=== PATIENT | female | born 1995 | race Caucasian/White ===

== ENCOUNTER 2018-09-17 11:45 | Observation (INO) ==
[2018-09-17 12:42] LABS: Basophils % 0.1 %; Eosinophils % 0.2 %; Hematocrit 38.6 % (35.3-44.9); Hemoglobin 12.8 g/dL (11.5-15.4); Immature Granulocytes % 0.3 % (0-4); Lymphocytes # 1.1 K/mcL (0.6-4.6); Mean Corpuscular HGB Conc 33.2 g/dL (31.6-35.5); Mean Corpuscular Hemoglobin 30.3 pg (28.0-33.3); Mean Corpuscular Volume 91.3 fL (83.0-100.0); Mean Platelet Volume 11.9 fL (9.4-12.4); Monocytes # 0.3 K/mcL (0.0-1.3); Monocytes % 3.4 %; Neutrophils # 7.8 K/mcL (1.6-8.9); Platelet Count 187 K/mcL (140-400); Red Blood Count 4.23 M/mcL (3.82-4.97); Red Cell Distribution Width 12.7 % (11.5-14.5); White Blood Count 9.3 K/mcL (4.3-11.1)
[2018-09-17 12:44] LABS: Bilirubin,Urine Negative (Negative); Blood,Urine Moderate (Negative); Clarity,Urine Cloudy (Clear); Color,Urine Yellow (Yellow); Glucose,Urine (UA) Normal (Normal); Ketones,Urine Negative (Negative); Leukocyte Esterase,Urine Small (Negative); Nitrite,Urine Negative (Negative); Protein,Urine Negative (Neg-Trace); Specific Gravity,Urine 1.026 (1.010-1.025)
[2018-09-17 12:47] LABS: Bacteria,Urine Many per hpf (None-Few); Hyaline Casts,Urine None Seen per lpf (None-Few); Squamous Epithelial Cell,Urine Many per lpf (None-Few)
[2018-09-17 13:01] LABS: BUN/Creatinine Ratio 12 (6-26); Blood Urea Nitrogen 6 mg/dL (6-20); Calcium 9.4 mg/dL (8.6-10.3); Carbon Dioxide 26 mEq/L (23-29); Chloride 103 mEq/L (98-107); Glucose 99 mg/dL (70-105); Osmolality,Calculated 286 (280-300); Potassium 3.5 mEq/L (3.5-5.1); Sodium 139 mEq/L (136-145); eGFR For African Americans > 60 (> 60); eGFR For Non-African Americans > 60 (> 60)
--- NOTE | 2018-09-17 14:13 | Emergency Department Note ---
Disposition Clinical Impression: 12 weeks gestation of , Pyelonephritis Disposition: Admitted As Inpatient Condition: Fair Referrals: Latha Cantor, HEADER MACHINE OPERATOR [Primary Care Provider] - Forms: ED Satisfaction Letter Time of Disposition: 17:16 Female Urogenital HPI - General Chief complaint: ED Urogenital-Female Stated complaint: right flank pain, UTI Time Seen by Provider: 09/17/18 14:12 Source: patient Mode of arrival: ambulatory Limitations: no limitations Nursing Notes Reviewed: Yes Vital Signs Reviewed: Yes - History of Present Illness HPI Narrative: Patient is a 23-year-old female presenting with dysuria. Patient is a , currently 12 weeks , follows with Dr. Caro at [facility]. Patient states that approximately one week ago she began to have dysuria with right flank pain, at that point in time she was diagnosed with a urinary tract infection and placed on nitrofurantoin, she took this course, following initiation of this dosing, she was seen by her BANQUET PILOT with positive movement on ultrasound. She states that her symptoms have continued but over the weekend she started have fever and chills with increased flank pain on the right. She complains of dysuria and urgency, frequency as well as fevers and chills. She also has nausea without vomiting. She denies any abdominal pain, no vaginal bleeding or vaginal discharge. - Related Data Previous Rx's Medication Instructions Recorded Pnv95/Ferrous Fumarate/FA 1 each PO DAILY #90 tablet 07/29/18 [ Vitamin Tablet] Allergies Allergy/AdvReac Type Severity Reaction Status Date / Time acetaminophen [From Percocet] Allergy Hallucinati Verified 09/17/18 12:04 ng hydrocodone [From [place]] Allergy Hallucinati Verified 09/17/18 12:04 ng oxycodone [From Percocet] Allergy Hallucinati Verified 09/17/18 12:04 ng All systems ED: reviewed and negative except as stated. Review of Systems: As Per HPI Constitutional: Reports: fever, chills ENT ED: Denies: congestion Cardiovascular: Denies: chest pain, palpitations, syncope Respiratory: Denies: cough, dyspnea Gastrointestinal: Reports: nausea. Denies: abdominal pain, vomiting, diarrhea, hematemesis, melena, hematochezia Genitourinary: Reports: urgency, dysuria. Denies: hematuria, discharge Musculoskeletal: Reports: back pain Integumentary: Denies: rash Neurological: Denies: headache, weakness, confusion Endocrine: Denies: fatigue Past Medical History - Past Medical History Medical history: Reports: no medical history Surgical history: Reports: no surgical history Psychiatric history: Reports: no psych history BANQUET PILOT history: Reports: no BANQUET PILOT history - Social History Smoking Status: Current every day smoker Smokeless Tobacco Status: No Alcohol use: Reports: none Drug use: Reports: none Physical Exam General: Conversant. No apparent distress. Follow commands. Appears stated age. Neck: No JVD. Trachea midline. Neck supple. Eyes: PERRL. No scleral icterus. HENT: Normocephalic and atraumatic. Moist mucus membranes. Cardiovascular: Regular rate and rhythm. Normal S1 and S2. No murmurs appreciated. Normal capillary refill. Extremities well perfused with 2+ distal pulses bilaterally. No edema. Pulmonary: Normal and equal breath sounds bilaterally, anteriorly and posteriorly. No wheezes, rales, or rhonchi. Not in respiratory distress. Speaks in full sentences. Abdomen: Patient without abdominal tenderness, she has a gravid abdomen above the suprapubic region, CVA tenderness on the right down to the lateral right abdomen, without left CVA tenderness. No rash Neuro: Alert and oriented x3. No slurred speech. No focal deficits noted. Skin: No rashes noted on visualized skin. Musculoskeletal: No bony abnormalities visualized. Moves all extremities. Psych: Normal mood. Pleasant. Makes appropriate eye contact. Course Vital Signs Temperature 98.2 F 09/17/18 11:56 Pulse Rate 115 09/17/18 11:56 Respiratory Rate 09/17/18 11:56 Blood Pressure 137/81 09/17/18 11:56 O2 Sat by Pulse Oximetry 98 09/17/18 11:56 Temperature 98.2 F 09/17/18 13:57 Pulse Rate 115 09/17/18 13:57 Respiratory Rate 09/17/18 13:57 Blood Pressure 137/81 09/17/18 13:57 O2 Sat by Pulse Oximetry 98 09/17/18 13:57 Oxygen Delivery Oxygen Delivery Room Air Urogenital-Female - MDM Narrative Medical decision making narrative: Patient is a 23-year-old female who is currently 12 weeks presenting for continued urinary tract infection despite nitrofurantoin treatment. On arrival, patient is tachycardic, she is afebrile and normotensive. Patient reports fever over the weekend with a temperature of 102 Fahrenheit. She states she has continued to have subjective fevers and chills throughout the past day. Patient was sent in by her BANQUET PILOT, Dr. Caro for further evaluation. Given concern for pyelonephritis versus obstruction and infected nephrolithiasis, CBC, BMP as well as urinalysis will be performed. Bedside ultrasound was performed with excellent movement, heart tones of 150 bpm. CBC, BMP are unremarkable. Urinalysis continues to show urinary tract infection. Patient was started on 2 L of saline given the tachycardia, she was also started on Rocephin. Given the right flank pain, renal ultrasound was performed to rule out hydronephrosis for concern for obstruction and infected stone, renal ultrasound shows no hydronephrosis and otherwise is unremarkable. I did speak with the on-call [employer] franchise field consultant, who agrees with Rocephin treatment, states that they will see the patient as consult as the patient is currently less than 20 weeks. Patient at this point is stable, following fluid hydration, patient's heart rate is 98 in the room. Patient agrees with admission and disposition at this point in time. Patient has been admitted. - Medical Records Medical records reviewed: Yes I reviewed the patient's medical records. - Lab Data Lab results reviewed: Yes I reviewed the patient's lab results. Result diagrams: 09/17/18 12:14 09/17/18 12:14 Lab Results 09/17/18 09/17/18 09/17/18 Range/Units 11:57 12:12 12:14 WBC 9.3 (4.3-11.1) K/mcL RBC 4.23 (3.82-4.97) M/mcL Hgb 12.8 (11.5-15.4) g/dL Hct 38.6 (35.3-44.9) % MCV 91.3 (83.0-100.0) fL MCH 30.3 (28.0-33.3) pg MCHC 33.2 (31.6-35.5) g/dL RDW 12.7 (11.5-14.5) % Plt Count 187 (140-400) K/mcL MPV 11.9 (9.4-12.4) fL Immature Gran % 0.3 (0-4) % Seg Neutrophils % 84.0 % Lymphocytes % 12.0 % Monocytes % 3.4 % Eosinophils % 0.2 % Basophils % 0.1 % Neutrophils # 7.8 (1.6-8.9) K/mcL Lymphocytes # 1.1 (0.6-4.6) K/mcL Monocytes # 0.3 (0.0-1.3) K/mcL Eosinophils # 0.0 (0.0-0.6) K/mcL Basophils # 0.0 (0.0-0.2) K/mcL Sodium (136-145) mEq/L Potassium (3.5-5.1) mEq/L Chloride (98-107) mEq/L Carbon Dioxide (23-29) mEq/L BUN (6-20) mg/dL Creatinine (0.60-1.20) mg/dL Est GFR ( Amer) (> 60) Est GFR (Non-Af Amer) (> 60) BUN/Creatinine Ratio (6-26) Glucose (70-105) mg/dL Calculated Osmolality (280-300) Lactic Acid (0.5-2.2) mmol/L Calcium (8.6-10.3) mg/dL Beta HCG, Quant (Less than 5) mIU/mL Urine Color Yellow (Yellow) Urine Clarity Cloudy A (Clear) Urine pH 7.0 (5.0-8.0) pH Units Ur Specific [place] 1.026 H (1.010-1.025) Urine Protein Negative (Neg-Trace) mg/dL Urine Glucose (UA) Normal (Normal) mg/dL Urine Ketones Negative (Negative) mg/dL Urine Blood Moderate H (Negative) Urine Nitrite Negative (Negative) Urine Bilirubin Negative (Negative) Urine Urobilinogen 2.0 H (Normal) mg/dL Ur Leukocyte Esterase Small H (Negative) Urine Microscopic RBC 5-15 H (0-3) per hpf Urine Microscopic WBC 3-5 H (0-3) per hpf Ur Squamous Epith Cells Many H (None-Few) per lpf Urine Bacteria Many H (None-Few) per hpf Hyaline Casts None Seen (None-Few) per lpf Ur Culture Indicated? YES A (NO) Urine Test Positive A (Negative) 09/17/18 09/17/18 09/17/18 Range/Units 12:14 14:42 14:42 WBC (4.3-11.1) K/mcL RBC (3.82-4.97) M/mcL Hgb (11.5-15.4) g/dL Hct (35.3-44.9) % MCV (83.0-100.0) fL MCH (28.0-33.3) pg MCHC (31.6-35.5) g/dL RDW (11.5-14.5) % Plt Count (140-400) K/mcL MPV (9.4-12.4) fL Immature Gran % (0-4) % Seg Neutrophils % % Lymphocytes % % Monocytes % % Eosinophils % % Basophils % % Neutrophils # (1.6-8.9) K/mcL Lymphocytes # (0.6-4.6) K/mcL Monocytes # (0.0-1.3) K/mcL Eosinophils # (0.0-0.6) K/mcL Basophils # (0.0-0.2) K/mcL Sodium 139 (136-145) mEq/L Potassium 3.5 (3.5-5.1) mEq/L Chloride 103 (98-107) mEq/L Carbon Dioxide 26 (23-29) mEq/L BUN 6 (6-20) mg/dL Creatinine 0.50 L (0.60-1.20) mg/dL Est GFR ( Amer) > 60 (> 60) Est GFR (Non-Af Amer) > 60 (> 60) BUN/Creatinine Ratio 12 (6-26) Glucose 99 (70-105) mg/dL Calculated Osmolality 286 (280-300) Lactic Acid 1.1 (0.5-2.2) mmol/L Calcium 9.4 (8.6-10.3) mg/dL Beta HCG, Quant 462084 H 159316 H (Less than 5) mIU/mL Urine Color (Yellow) Urine Clarity (Clear) Urine pH (5.0-8.0) pH Units Ur Specific [place] (1.010-1.025) Urine Protein (Neg-Trace) mg/dL Urine Glucose (UA) (Normal) mg/dL Urine Ketones (Negative) mg/dL Urine Blood (Negative) Urine Nitrite (Negative) Urine Bilirubin (Negative) Urine Urobilinogen (Normal) mg/dL Ur Leukocyte Esterase (Negative) Urine Microscopic RBC (0-3) per hpf Urine Microscopic WBC (0-3) per hpf Ur Squamous Epith Cells (None-Few) per lpf Urine Bacteria (None-Few) per hpf Hyaline Casts (None-Few) per lpf Ur Culture Indicated? (NO) Urine Test (Negative) - Radiology Data Radiology results reviewed: Yes I reviewed the patient's radiology results. Retroperitoneum Ultrasound 09/17/18 15:50 IMPRESSION: Unremarkable ultrasound of the kidneys and urinary bladder. D/ / Brenda Holguin MD / Brenda Holguin MD Interpreting Provider: Brenda Holguin MD
[2018-09-17] MEDS ORDERED: cefTRIAXone 1,000 MG in Water for inj. (sterile) 10 ML IVP ONE (14:22)
[2018-09-17] MEDS ORDERED: 0.9 % Sodium Chloride 1,000 ML IVC ONE ×2 (14:32→16:32)
--- NOTE | 2018-09-17 16:37 | Emergency Department Note ---
Disposition Clinical Impression: 12 weeks gestation of , Pyelonephritis Disposition: Still a Patient Condition: Good Referrals: Latha Cantor, HEMATOLOGY TECHNOLOGIST [Primary Care Provider] - Forms: ED Satisfaction Letter Time of Disposition: 16:37 General Adult HPI - General Chief complaint: ED Urogenital-Female Stated complaint: right flank pain, UTI Time Seen by Provider: 09/17/18 14:12 Source: patient Mode of arrival: ambulatory Limitations: no limitations - History of Present Illness Pain Scale: 3 - Related Data Previous Rx's Medication Instructions Recorded Pnv95/Ferrous Fumarate/FA 1 each PO DAILY #90 tablet 07/29/18 [ Vitamin Tablet] Allergies Allergy/AdvReac Type Severity Reaction Status Date / Time acetaminophen [From Percocet] Allergy Hallucinati Verified 09/17/18 12:04 ng hydrocodone [From [place]] Allergy Hallucinati Verified 09/17/18 12:04 ng oxycodone [From Percocet] Allergy Hallucinati Verified 09/17/18 12:04 ng Constitutional: Reports: fever, chills ENT ED: Denies: congestion Cardiovascular: Denies: chest pain, palpitations, syncope Respiratory: Denies: cough, dyspnea Gastrointestinal: Reports: nausea. Denies: abdominal pain, vomiting, diarrhea, hematemesis, melena, hematochezia Genitourinary: Reports: urgency, dysuria. Denies: hematuria, discharge Musculoskeletal: Reports: back pain Integumentary: Denies: rash Neurological: Denies: headache, weakness, confusion Endocrine: Denies: fatigue Past Medical History - Past Medical History Medical history: Reports: no medical history Surgical history: Reports: no surgical history Psychiatric history: Reports: no psych history DISCHARGING MACHINE OPERATOR history: Reports: no DISCHARGING MACHINE OPERATOR history - Social History Smoking Status: Current every day smoker Smokeless Tobacco Status: No Alcohol use: Reports: none Drug use: Reports: none Physical Exam - General Limitations: no limitations General appearance: alert, in no apparent distress Course Vital Signs Temperature 98.2 F 09/17/18 11:56 Pulse Rate 115 09/17/18 11:56 Respiratory Rate 20 09/17/18 11:56 Blood Pressure 137/81 09/17/18 11:56 O2 Sat by Pulse Oximetry 98 09/17/18 11:56 Temperature 98.2 F 09/17/18 13:57 Pulse Rate 115 09/17/18 13:57 Respiratory Rate 20 09/17/18 13:57 Blood Pressure 137/81 09/17/18 13:57 O2 Sat by Pulse Oximetry 98 09/17/18 13:57 Oxygen Delivery Oxygen Delivery Room Air Medical Decision Making - Lab Data Result diagrams: 09/17/18 12:14 09/17/18 12:14 Lab Results 09/17/18 09/17/18 09/17/18 Range/Units 11:57 12:12 12:14 WBC 9.3 (4.3-11.1) K/mcL RBC 4.23 (3.82-4.97) M/mcL Hgb 12.8 (11.5-15.4) g/dL Hct 38.6 (35.3-44.9) % MCV 91.3 (83.0-100.0) fL MCH 30.3 (28.0-33.3) pg MCHC 33.2 (31.6-35.5) g/dL RDW 12.7 (11.5-14.5) % Plt Count 187 (140-400) K/mcL MPV 11.9 (9.4-12.4) fL Immature Gran % 0.3 (0-4) % Seg Neutrophils % 84.0 % Lymphocytes % 12.0 % Monocytes % 3.4 % Eosinophils % 0.2 % Basophils % 0.1 % Neutrophils # 7.8 (1.6-8.9) K/mcL Lymphocytes # 1.1 (0.6-4.6) K/mcL Monocytes # 0.3 (0.0-1.3) K/mcL Eosinophils # 0.0 (0.0-0.6) K/mcL Basophils # 0.0 (0.0-0.2) K/mcL Sodium (136-145) mEq/L Potassium (3.5-5.1) mEq/L Chloride (98-107) mEq/L Carbon Dioxide (23-29) mEq/L BUN (6-20) mg/dL Creatinine (0.60-1.20) mg/dL Est GFR ( Amer) (> 60) Est GFR (Non-Af Amer) (> 60) BUN/Creatinine Ratio (6-26) Glucose (70-105) mg/dL Calculated Osmolality (280-300) Lactic Acid (0.5-2.2) mmol/L Calcium (8.6-10.3) mg/dL Beta HCG, Quant (Less than 5) mIU/mL Urine Color Yellow (Yellow) Urine Clarity Cloudy A (Clear) Urine pH 7.0 (5.0-8.0) pH Units Ur Specific [place] 1.026 H (1.010-1.025) Urine Protein Negative (Neg-Trace) mg/dL Urine Glucose (UA) Normal (Normal) mg/dL Urine Ketones Negative (Negative) mg/dL Urine Blood Moderate H (Negative) Urine Nitrite Negative (Negative) Urine Bilirubin Negative (Negative) Urine Urobilinogen 2.0 H (Normal) mg/dL Ur Leukocyte Esterase Small H (Negative) Urine Microscopic RBC 5-15 H (0-3) per hpf Urine Microscopic WBC 3-5 H (0-3) per hpf Ur Squamous Epith Cells Many H (None-Few) per lpf Urine Bacteria Many H (None-Few) per hpf Hyaline Casts None Seen (None-Few) per lpf Ur Culture Indicated? YES A (NO) Urine Test Positive A (Negative) 09/17/18 09/17/18 09/17/18 Range/Units 12:14 14:42 14:42 WBC (4.3-11.1) K/mcL RBC (3.82-4.97) M/mcL Hgb (11.5-15.4) g/dL Hct (35.3-44.9) % MCV (83.0-100.0) fL MCH (28.0-33.3) pg MCHC (31.6-35.5) g/dL RDW (11.5-14.5) % Plt Count (140-400) K/mcL MPV (9.4-12.4) fL Immature Gran % (0-4) % Seg Neutrophils % % Lymphocytes % % Monocytes % % Eosinophils % % Basophils % % Neutrophils # (1.6-8.9) K/mcL Lymphocytes # (0.6-4.6) K/mcL Monocytes # (0.0-1.3) K/mcL Eosinophils # (0.0-0.6) K/mcL Basophils # (0.0-0.2) K/mcL Sodium 139 (136-145) mEq/L Potassium 3.5 (3.5-5.1) mEq/L Chloride 103 (98-107) mEq/L Carbon Dioxide 26 (23-29) mEq/L BUN 6 (6-20) mg/dL Creatinine 0.50 L (0.60-1.20) mg/dL Est GFR ( Amer) > 60 (> 60) Est GFR (Non-Af Amer) > 60 (> 60) BUN/Creatinine Ratio 12 (6-26) Glucose 99 (70-105) mg/dL Calculated Osmolality 286 (280-300) Lactic Acid 1.1 (0.5-2.2) mmol/L Calcium 9.4 (8.6-10.3) mg/dL Beta HCG, Quant 932734 H 685298 H (Less than 5) mIU/mL Urine Color (Yellow) Urine Clarity (Clear) Urine pH (5.0-8.0) pH Units Ur Specific [place] (1.010-1.025) Urine Protein (Neg-Trace) mg/dL Urine Glucose (UA) (Normal) mg/dL Urine Ketones (Negative) mg/dL Urine Blood (Negative) Urine Nitrite (Negative) Urine Bilirubin (Negative) Urine Urobilinogen (Normal) mg/dL Ur Leukocyte Esterase (Negative) Urine Microscopic RBC (0-3) per hpf Urine Microscopic WBC (0-3) per hpf Ur Squamous Epith Cells (None-Few) per lpf Urine Bacteria (None-Few) per hpf Hyaline Casts (None-Few) per lpf Ur Culture Indicated? (NO) Urine Test (Negative) Attestation Statement - Attestation Attestation: I reviewed the residents documentation and agree with the residents assessment and plan of care. I have personally had face to face time with the patient. (Brief History, Brief Exam, and MDM) I personally supervised and was present for the landers/critical portions of the following procedures completed by the resident: US 23 year old female presents ot the eD who is currently A2 and presents for outpatient failure of UTI therapy and is now expereincing increased flank pain and meets SIRS criteria and is likely pyelonephritis in . We have started antiboitic therapy and IVF. Fadia is pending a retroperitoneal US to rule out infected kidney stone as she has lower left pelvic pain. PAtinet will be signed out to Dr. Don Avendano for followup on Ultrasound. If patient has an infected stone she will require urology followup and possible transfer if they cannot extract the stone here. Otherwise obgyn has been consulted and will otherwise be admitted to medicine as she is only 12 weeks . FHR 150, good movement
[2018-09-17] MEDS ORDERED: Naloxone 0.4 MG/ML INJ IVP PRN (17:44)
[2018-09-17] MEDS ORDERED: Nicotine 14 MG PATCH.TD24 TD PRN (17:50)
--- NOTE | 2018-09-17 18:01 | Internal Med History&Physical ---
Date of Encounter: 09/17/18 Time of Encounter: 17:53 Internal Medicine - H&P: HPI Chief complaint: UTI Admitted From: Home Plans for Post Hospital Care: Home History of present illness: Ms. Morrison is a 23 year old female who has no significant medical history presenting emergency room for possible UTI. Patient is 12 weeks , she was here in the emergency room 10 days ago for UTI, was discharged on Macrobid 100 mg twice a day for 7 days. She continues to having burning and frequent urination, and also develop her right flank pain, 6 out of 10 on and off, urination make it worse. And she had the one episode of fever and chills 2 days ago. She had the one episode of hematuria 10 days ago. In the emergency room she was found to UTI, OB was called in ER, patient is going to be admitted for UTI, possible pyelonephritis, failed OP treatment. she received ceftriaxone, renal US was done, but pending result. sh eis a smoker, ,requests nicotine patch. Past Med Surg Social Fam HX - Past Medical History Medical history: no medical history Psychiatric history: no psych history - Past Surgical History Surgical History: no surgical history - Social History Smoking Status: Current every day smoker Smokeless Tobacco Status: No Alcohol use: none Drug use: none Internal Medicine - H&P: Meds Pnv95/Ferrous Fumarate/FA [ Vitamin Tablet] 1 each PO DAILY #90 tablet 07/29/18 [Rx] Allergy/AdvReac Type Severity Reaction Status Date / Time acetaminophen [From Percocet] Allergy Hallucinati Verified 09/17/18 12:04 ng hydrocodone [From [place]] Allergy Hallucinati Verified 09/17/18 12:04 ng oxycodone [From Percocet] Allergy Hallucinati Verified 09/17/18 12:04 ng All Systems PM: A 10-system review of systems was performed and is negative for pertinent findings except as documented above in the HPI. - Constitutional Vitals: Temp Pulse Resp BP Pulse Ox 98.2 F 115 20 137/81 98 09/17/18 13:57 09/17/18 13:57 09/17/18 13:57 09/17/18 13:57 09/17/18 13:57 General appearance: Present: A&O X 3, pleasant Exam: CONSTITUTIONAL: Patient appears as an age appropriate female well developed, in no acute distress. EYES Clear sclerae, bilateral pupils are equal, reactive to light and accommodation. Extraocular movements are intact RESPIRATORY: No accessory muscle use, bilateral clear to auscultation, no wheezing, no crackles/rales. CARDIOVASCULAR: Regular heart rate, normal S1 and S2, no murmurs GASTROINTESTINAL: bowel sounds present, soft, no tenderness. No hepatosplenomegaly. right CVA tenderness MUSCULOSKELETAL: Joints in normal range of motion, no clubbing, no edema, no cyanosis. Bilateral peripheral pulses 2+ LYMPHATIC no lymphadenopathy in neck, groin and axilla bilaterally, no thyromegaly. NEUROLOGIC: CN II to XII are grossly intact, no focal neurological deficit. Deep tendon reflexes 2+ bilaterally. Normal light touch sensation to upper and lower extremity PSYCHIATRIC: Oriented x3, with good insight, mood is euthymic. No hallucinations or delusions. SKIN: Skin warm and dry, no rashes, no open wound. Internal Med - H&P Results - Labs CBC & Chem 7: 09/17/18 12:14 09/17/18 12:14 Labs: Short CBC 09/17/18 Range/Units 12:14 WBC 9.3 (4.3-11.1) K/mcL Hgb 12.8 (11.5-15.4) g/dL Hct 38.6 (35.3-44.9) % Plt Count 187 (140-400) K/mcL Neutrophils # 7.8 (1.6-8.9) K/mcL BMP 09/17/18 12:14 Sodium 139 Potassium 3.5 Chloride 103 Carbon Dioxide 26 BUN 6 Creatinine 0.50 L Glucose 99 Calcium 9.4 Urine 09/17/18 Range/Units 11:57 Urine Color Yellow (Yellow) Urine Clarity Cloudy A (Clear) Urine pH 7.0 (5.0-8.0) pH Units Ur Specific [place] 1.026 H (1.010-1.025) Urine Protein Negative (Neg-Trace) mg/dL Urine Glucose (UA) Normal (Normal) mg/dL - Impressions ITS Impressions Retroperitoneum Ultrasound 09/17/18 15:50 IMPRESSION: Unremarkable ultrasound of the kidneys and urinary bladder. D/ / Brenda Holguin MD / Brenda Holguin MD Interpreting Provider: Brenda Holguin MD - Summary of Assessment and Plan Summary of Assessment and Plan: MS. Morrison is a 23 year old female who has no significant medical history presenting emergency room for possible UTI. Patient is 12 weeks , she was here in the emergency room 10 days ago for UTI, was discharged on Macrobid 100 mg twice a day for 7 days. She continues to having burning and frequent u rination, and also develop her right flank pain, 6 out of 10 on and off, urination make it worse. And she had the one episode of fever and chills 2 days ago. She had the one episode of hematuria 10 days ago. In the emergency room she was found to UTI, OB was called in ER, patient is going to be admitted for UTI, possible pyelonephritis, failed OP treatment. she received ceftriaxone, renal US was done, but pending result. she is a smoker, ,requests nicotine patch. 1. recurrent UTI, failed OP treatment, possible pyelonephritis, pendign renal US, continue IV ceftriaxone, IVF 2. 12 weeks , OB was called, conitnue vitamin 3. tobacco dependent, nicotine patch prn 4. DVT prophylasix, ambulation - Time Spent With Patient Total time spent is greater than 50% in coordination of care (as documented) at patient's floor/unit and/or counseling patient: Greater than 35 minutes
--- NOTE | 2018-09-17 20:39 | Event Note ---
Date of Encounter: 09/17/18 Time of Encounter: 19:36 Alerted by patient's nurse TATI Hernandes that patient was admitted for UTI and is 12 weeks . Patient asking for nicotine patch. According to evidence based research, nicotine patch should be used in with extreme caution due to continuous dosing from the patch. Discussed this with OB nurse Filomena in [facility] who discussed with OB physician Dr. Loya who recommended nicotine patch at lowest dose. I appreciate the curbside consult and recommendations as always. 14 mg patch ordered which I changed to 7 mg. Nurse instructed to continue monitoring the pt. closely and alert me immediately of any adverse changes.
--- NOTE | 2018-09-17 21:06 | Emergency Department Note ---
Disposition Clinical Impression: 12 weeks gestation of , Pyelonephritis Disposition: Admitted As Inpatient Condition: Good Time of Disposition: 17:00 General Adult HPI - General Chief complaint: ED Urogenital-Female Stated complaint: right flank pain, UTI Time Seen by Provider: 09/17/18 14:12 Source: patient Mode of arrival: ambulatory Limitations: no limitations Nursing Notes Reviewed: Yes Vital Signs Reviewed: Yes - History of Present Illness Pain Scale: 3 - Related Data Previous Rx's Medication Instructions Recorded Pnv95/Ferrous Fumarate/FA 1 each PO DAILY #90 tablet 07/29/18 [ Vitamin Tablet] Allergies Allergy/AdvReac Type Severity Reaction Status Date / Time acetaminophen [From Percocet] Allergy Hallucinati Verified 09/17/18 12:04 ng hydrocodone [From [place]] Allergy Hallucinati Verified 09/17/18 12:04 ng oxycodone [From Percocet] Allergy Hallucinati Verified 09/17/18 12:04 ng Constitutional: Reports: fever, chills ENT ED: Denies: congestion Cardiovascular: Denies: chest pain, palpitations, syncope Respiratory: Denies: cough, dyspnea Gastrointestinal: Reports: nausea. Denies: abdominal pain, vomiting, diarrhea, hematemesis, melena, hematochezia Genitourinary: Reports: urgency, dysuria. Denies: hematuria, discharge Musculoskeletal: Reports: back pain Integumentary: Denies: rash Neurological: Denies: headache, weakness, confusion Endocrine: Denies: fatigue Past Medical History - Past Medical History Medical history: Reports: no medical history Surgical history: Reports: no surgical history Psychiatric history: Reports: no psych history HIGH SCHOOL PRINCIPAL history: Reports: no HIGH SCHOOL PRINCIPAL history - Social History Smoking Status: Current every day smoker Smokeless Tobacco Status: No Alcohol use: Reports: none Drug use: Reports: none Physical Exam - General Limitations: no limitations General appearance: alert, in no apparent distress Course Vital Signs Temperature 98.2 F 09/17/18 11:56 Pulse Rate 115 09/17/18 11:56 Respiratory Rate 20 09/17/18 11:56 Blood Pressure 137/81 09/17/18 11:56 O2 Sat by Pulse Oximetry 98 09/17/18 11:56 Temperature 98.5 F 09/17/18 18:32 Pulse Rate 61 09/17/18 18:32 Respiratory Rate 14 09/17/18 18:32 Blood Pressure 107/63 09/17/18 18:32 O2 Sat by Pulse Oximetry 99 09/17/18 18:32 Oxygen Delivery Oxygen Delivery Room Air Medical Decision Making - MDM Narrative Medical decision making narrative: Patient received in sign out at 1700 pending ultrasound and admission to the hospital. Ultrasound did not show evidence of hydronephrosis or hydroureter. Unlikely to have obstructing kidney stone. Patient will be admitted to the hospitalist for further care and evaluation. - Lab Data Result diagrams: 09/17/18 12:14 09/17/18 12:14 Lab Results 09/17/18 09/17/18 09/17/18 Range/Units 11:57 12:12 12:14 WBC 9.3 (4.3-11.1) K/mcL RBC 4.23 (3.82-4.97) M/mcL Hgb 12.8 (11.5-15.4) g/dL Hct 38.6 (35.3-44.9) % MCV 91.3 (83.0-100.0) fL MCH 30.3 (28.0-33.3) pg MCHC 33.2 (31.6-35.5) g/dL RDW 12.7 (11.5-14.5) % Plt Count 187 (140-400) K/mcL MPV 11.9 (9.4-12.4) fL Immature Gran % 0.3 (0-4) % Seg Neutrophils % 84.0 % Lymphocytes % 12.0 % Monocytes % 3.4 % Eosinophils % 0.2 % Basophils % 0.1 % Neutrophils # 7.8 (1.6-8.9) K/mcL Lymphocytes # 1.1 (0.6-4.6) K/mcL Monocytes # 0.3 (0.0-1.3) K/mcL Eosinophils # 0.0 (0.0-0.6) K/mcL Basophils # 0.0 (0.0-0.2) K/mcL Sodium (136-145) mEq/L Potassium (3.5-5.1) mEq/L Chloride (98-107) mEq/L Carbon Dioxide (23-29) mEq/L BUN (6-20) mg/dL Creatinine (0.60-1.20) mg/dL Est GFR ( Amer) (> 60) Est GFR (Non-Af Amer) (> 60) BUN/Creatinine Ratio (6-26) Glucose (70-105) mg/dL Calculated Osmolality (280-300) Lactic Acid (0.5-2.2) mmol/L Calcium (8.6-10.3) mg/dL Beta HCG, Quant (Less than 5) mIU/mL Urine Color Yellow (Yellow) Urine Clarity Cloudy A (Clear) Urine pH 7.0 (5.0-8.0) pH Units Ur Specific [place] 1.026 H (1.010-1.025) Urine Protein Negative (Neg-Trace) mg/dL Urine Glucose (UA) Normal (Normal) mg/dL Urine Ketones Negative (Negative) mg/dL Urine Blood Moderate H (Negative) Urine Nitrite Negative (Negative) Urine Bilirubin Negative (Negative) Urine Urobilinogen 2.0 H (Normal) mg/dL Ur Leukocyte Esterase Small H (Negative) Urine Microscopic RBC 5-15 H (0-3) per hpf Urine Microscopic WBC 3-5 H (0-3) per hpf Ur Squamous Epith Cells Many H (None-Few) per lpf Urine Bacteria Many H (None-Few) per hpf Hyaline Casts None Seen (None-Few) per lpf Ur Culture Indicated? YES A (NO) Urine Test Positive A (Negative) 09/17/18 09/17/18 09/17/18 Range/Units 12:14 14:42 14:42 WBC (4.3-11.1) K/mcL RBC (3.82-4.97) M/mcL Hgb (11.5-15.4) g/dL Hct (35.3-44.9) % MCV (83.0-100.0) fL MCH (28.0-33.3) pg MCHC (31.6-35.5) g/dL RDW (11.5-14.5) % Plt Count (140-400) K/mcL MPV (9.4-12.4) fL Immature Gran % (0-4) % Seg Neutrophils % % Lymphocytes % % Monocytes % % Eosinophils % % Basophils % % Neutrophils # (1.6-8.9) K/mcL Lymphocytes # (0.6-4.6) K/mcL Monocytes # (0.0-1.3) K/mcL Eosinophils # (0.0-0.6) K/mcL Basophils # (0.0-0.2) K/mcL Sodium 139 (136-145) mEq/L Potassium 3.5 (3.5-5.1) mEq/L Chloride 103 (98-107) mEq/L Carbon Dioxide 26 (23-29) mEq/L BUN 6 (6-20) mg/dL Creatinine 0.50 L (0.60-1.20) mg/dL Est GFR ( Amer) > 60 (> 60) Est GFR (Non-Af Amer) > 60 (> 60) BUN/Creatinine Ratio 12 (6-26) Glucose 99 (70-105) mg/dL Calculated Osmolality 286 (280-300) Lactic Acid 1.1 (0.5-2.2) mmol/L Calcium 9.4 (8.6-10.3) mg/dL Beta HCG, Quant [id number] H [id number] H (Less than 5) mIU/mL Urine Color (Yellow) Urine Clarity (Clear) Urine pH (5.0-8.0) pH Units Ur Specific [place] (1.010-1.025) Urine Protein (Neg-Trace) mg/dL Urine Glucose (UA) (Normal) mg/dL Urine Ketones (Negative) mg/dL Urine Blood (Negative) Urine Nitrite (Negative) Urine Bilirubin (Negative) Urine Urobilinogen (Normal) mg/dL Ur Leukocyte Esterase (Negative) Urine Microscopic RBC (0-3) per hpf Urine Microscopic WBC (0-3) per hpf Ur Squamous Epith Cells (None-Few) per lpf Urine Bacteria (None-Few) per hpf Hyaline Casts (None-Few) per lpf Ur Culture Indicated? (NO) Urine Test (Negative)
[2018-09-17] MEDS: Prenatal Vit/FA 1 EACH TABLET PO SCH (21:26)
[2018-09-17] MEDS: Ringers Solution, Lactated 1,000 ML IVC SCH (21:26)
[2018-09-17] MEDS: Nicotine 7 MG PATCH.TD24 TD PRN (21:27)
[2018-09-18] MEDS ORDERED: *HR* Promethazine 25 MG/ML VIAL IVP ONE (01:30)
[2018-09-18] MEDS ORDERED: Ondansetron 4 MG/2 ML VIAL IVP ONE (01:32)
[2018-09-18 06:51] LABS: Basophils % 0.1 %; Eosinophils # 0.1 K/mcL (0.0-0.6); Eosinophils % 0.7 %; Hematocrit 32.2 % (35.3-44.9); Immature Granulocytes % 0.4 % (0-4); Lymphocytes # 2.5 K/mcL (0.6-4.6); Lymphocytes % 30.9 %; Mean Corpuscular HGB Conc 33.2 g/dL (31.6-35.5); Mean Corpuscular Hemoglobin 30.5 pg (28.0-33.3); Mean Corpuscular Volume 91.7 fL (83.0-100.0); Mean Platelet Volume 12.1 fL (9.4-12.4); Monocytes # 0.5 K/mcL (0.0-1.3); Monocytes % 5.5 %; Neutrophils # 5.1 K/mcL (1.6-8.9); Platelet Count 155 K/mcL (140-400); Red Blood Count 3.51 M/mcL (3.82-4.97); Red Cell Distribution Width 12.8 % (11.5-14.5); Segmented Neutrophils % 62.4 %; White Blood Count 8.2 K/mcL (4.3-11.1)
[2018-09-18 06:52] LABS: Hemoglobin 10.7 g/dL (11.5-15.4)
[2018-09-18 07:11] LABS: BUN/Creatinine Ratio 7 (6-26); Blood Urea Nitrogen 3 mg/dL (6-20); Calcium 8.7 mg/dL (8.6-10.3); Carbon Dioxide 25 mEq/L (23-29); Chloride 106 mEq/L (98-107); Glucose 93 mg/dL (70-105); Osmolality,Calculated 288 (280-300); Potassium 3.6 mEq/L (3.5-5.1); Sodium 141 mEq/L (136-145); eGFR For African Americans > 60 (> 60); eGFR For Non-African Americans > 60 (> 60)
--- NOTE | 2018-09-18 08:14 | OB/GYN Consult Note ---
Date of Encounter: 09/18/18 Time of Encounter: 08:12 Assessment and Plan (1) 12 weeks gestation of Current Visit: Yes Status: Acute Plan of care made in collaboration with Dr. Loya - Continue routine care as scheduled. Next appointment on 09/[address] Caro - FHR 150 bpm with doppler this morning, heart rate strong and regular. (2) Pyelonephritis Current Visit: Yes Status: Acute -Continue IV Rocephin as ordered - Discharge patient home when afebrile for 24-48 hours and she is feeling well - Discharge home with Keflex po for continued therapy - Telephone encounter sent to Dr. Caro to follow up on urine culture results. - Follow up with OB care provider on 09/20/18 as scheduled. History of Present Illness Consult date: 09/18/18 Requesting physician: Camilla Avendano Reason for consult: other (Compliated UTI) Chief complaint: UTI symptoms despite antibiotic therapy History of present illness: Patient states she is feeling better today after IV antibiotic therapy. She still has slight CVA tenderness on the right side. Today she denies any chills but does report some nausea last evening that was relieved by the ordered medication she was given. Copied from Admission H&P: Ms. Morrison is a 23 year old female who has no significant medical history presenting emergency room for possible UTI. Patient is 12 weeks , she was here in the emergency room 10 days ago for UTI, was discharged on Macrobid 100 mg twice a day for 7 days. She continues to having burning and frequent urination, and also develop her right flank pain, 6 out of 10 on and off, urination make it worse. And she had the one episode of fever and chills 2 days ago. She had the one episode of hematuria 10 days ago. In the emergency room she was found to UTI, OB was called in ER, patient is going to be admitted for UTI, possible pyelonephritis, failed OP treatment. she received ceftriaxone, renal US was done, but pending result. she is a smoker, requests nicotine patch. Past Med Surg Social Fam HX - Past Medical History Source: patient Medical history: no medical history Psychiatric history: no psych history - Past Surgical History Surgical History: no surgical history - Social History Smoking Status: Current every day smoker Smokeless Tobacco Status: No Alcohol use: none Drug use: none Medications and Allergies Acetaminophen [Tylenol] 650 mg PO BID PRN 09/18/18 [History] Allergy/AdvReac Type Severity Reaction Status Date / Time hydrocodone [From [place]] Allergy Hallucinati Verified 09/18/18 00:27 ng oxycodone [From Percocet] Allergy Hallucinati Verified 09/18/18 00:27 ng Review of Systems Respiratory: no cough, no dyspnea Gastrointestinal: nausea (ocassional), no abdominal pain, no change in bowel habits Genitourinary Female: flank pain Exam - Vital Signs Vital signs: Initial Vital Signs Temp Pulse Resp BP Pulse Ox 98.2 F 115 20 137/81 98 09/17/18 11:56 09/17/18 11:56 09/17/18 11:56 09/17/18 11:56 09/17/18 11:56 - Constitutional Constitutional: well developed, well nourished, no acute distress, average body habitus - Lungs Respiratory exam: CTAB - Cardiovascular Cardiovascular exam: RRR, +S1, +S2 - Abdomen Abdomen: Present: bowel sounds normal, gravid, non tender Results Result Diagrams: 09/18/18 06:29 09/18/18 06:29 Abnormal lab results RBC 3.51 M/mcL (3.82-4.97) L 09/18/18 06:29 Hgb 10.7 g/dL (11.5-15.4) L D 09/18/18 06:29 Hct 32.2 % (35.3-44.9) L 09/18/18 06:29 BUN 3 mg/dL (6-20) L 09/18/18 06:29 0.43 mg/dL (0.60-1.20) L 09/18/18 06:29 Beta HCG, Quant [id number] mIU/mL (Less than 5) H 09/17/18 14:42 Cloudy (Clear) A 09/17/18 11:57 Ur Specific [place] 1.026 (1.010-1.025) H 09/17/18 11:57 Moderate (Negative) H 09/17/18 11:57 2.0 mg/dL (Normal) H 09/17/18 11:57 Ur Leukocyte Esterase Small (Negative) H 09/17/18 11:57 5-15 per hpf (0-3) H 09/17/18 11:57 3-5 per hpf (0-3) H 09/17/18 11:57 Ur Squamous Epith Cells Many per lpf (None-Few) H 09/17/18 11:57 Many per hpf (None-Few) H 09/17/18 11:57 Ur Culture Indicated? YES (NO) A 09/17/18 11:57 Positive (Negative) A 09/17/18 12:12 All other labs normal. Consult Discharge Plan - Plan Referrals: Latha Cantor CNP [Primary Care Provider] - Tequila Caro MD [Partnered Physician] -
[2018-09-18] MEDS: Prenatal Vit/FA 1 EACH TABLET PO SCH (08:48)
[2018-09-18] MEDS: cefTRIAXone 1,000 MG in 0.9 % Sodium Chloride Mini Bag 100 ML IVPB SCH (08:49)
[2018-09-18] MEDS ORDERED: Acetaminophen 325 MG TABLET PO PRN (10:25)
--- NOTE | 2018-09-18 13:58 | Internal Med Progress Note ---
Hospitalist Progress Note - Encounter Date of Encounter: 09/18/18 Time of Encounter: 13:51 - Subjective Interval History: patient is doing better, afebrile, pain is better, tolerated diet BC and urine culture are pending - Exam Vitals: Temp Pulse Resp BP Pulse Ox 98.6 F 56 18 105/48 99 09/18/18 11:20 09/18/18 11:20 09/18/18 11:20 09/18/18 11:20 09/18/18 11:20 Exam: CONSTITUTIONAL: Patient appears as an age appropriate female well developed, in no acute distress. EYES Clear sclerae, bilateral pupils are equal, reactive to light and accommodation. Extraocular movements are intact RESPIRATORY: No accessory muscle use, bilateral clear to auscultation, no wh eezing, no crackles/rales. CARDIOVASCULAR: Regular heart rate, normal S1 and S2, no murmurs GASTROINTESTINAL: bowel sounds present, soft, no tenderness. No hepatosplenomegaly. right CVA tenderness MUSCULOSKELETAL: Joints in normal range of motion, no clubbing, no edema, no cyanosis. Bilateral peripheral pulses 2+ LYMPHATIC no lymphadenopathy in neck, groin and axilla bilaterally, no thyromegaly. NEUROLOGIC: CN II to XII are grossly intact, no focal neurological deficit. Deep tendon reflexes 2+ bilaterally. Normal light touch sensation to upper and lower extremity PSYCHIATRIC: Oriented x3, with good insight, mood is euthymic. No hallucinations or delusions. SKIN: Skin warm and dry, no rashes, no open wound. - Summary of Assessment and Plan Summary of Assessment and Plan: MS. Morrison is a 23 year old female who has no significant medical history pre senting emergency room for possible UTI. Patient is 12 weeks , she was here in the emergency room 10 days ago for UTI, was discharged on Macrobid 100 mg twice a day for 7 days. She continues to having burning and frequent urination, and also develop her right flank pain, 6 out of 10 on and off, urination make it worse. And she had the one episode of fever and chills 2 days ago. She had the one episode of hematuria 10 days ago. In the emergency room she was found to UTI, OB was called in ER, patient is going to be admitted for UTI, possible pyelonephritis, failed OP treatment. she received ceftriaxone, renal US is unremarkable she is a smoker, ,requests nicotine patch. 1. recurrent UTI, failed OP treatment, possible pyelonephritis, renal US is unremarkable, no hydronephrosis, continue IV ceftriaxone, IVF, pending urne culture 2. 12 weeks , conitnue vitamin, appreciate OB conuslt, patient is going to follow up with Dr Caro on 09/10. 3. tobacco dependent, smokinf cessation discussed, she took nicotine patch off 4. DVT prophylasix, ambulation OB is ok to Discharge patient home when afebrile for 24-48 hours and she is feeling well - Discharge home with Keflex po for continued therapy - Telephone encounter sent to Dr. Caro to follow up on urine culture results. - Follow up with OB care provider on 09/20/18 as scheduled. pending UC , BC, possible discharge tomorrow - Time Spent with Patient Total time spent is greater than 50% in coordination of care (as documented) at patient's floor/unit and/or counseling patient: Internal Medicine: Result - Labs CBC & Chem 7: 09/18/18 06:29 09/18/18 06:29 Labs: Short CBC 09/18/18 Range/Units 06:29 WBC 8.2 (4.3-11.1) K/mcL Hgb 10.7 L D (11.5-15.4) g/dL Hct 32.2 L (35.3-44.9) % Plt Count 155 (140-400) K/mcL Neutrophils # 5.1 (1.6-8.9) K/mcL BMP 09/17/18 09/18/18 12:14 06:29 Sodium 139 141 Potassium 3.5 3.6 Chloride 103 106 Carbon Dioxide 26 25 BUN 6 3 L Creatinine 0.50 L 0.43 L Glucose 99 93 Calcium 9.4 8.7 - Impressions Impressions Retroperitoneum Ultrasound 09/17/18 15:50 IMPRESSION: Unremarkable ultrasound of the kidneys and urinary bladder. D/ / Brenda Holguin MD / Brenda Holguin MD Interpreting Provider: Brenda Holguin MD Consult Discharge Plan - Plan Referrals: Latha Cantor, [employer] [Primary Care Provider] - Tequila Caro MD [Partnered Physician] -
[2018-09-18] MEDS: Ringers Solution, Lactated 1,000 ML IVC SCH (14:21)
[2018-09-18] MEDS: Nicotine 7 MG PATCH.TD24 TD PRN (22:52)
[2018-09-19 07:07] VITALS: BP 101/65
--- NOTE | 2018-09-19 09:26 | Discharge Summary ---
Orders not resulted at time of discharge: Pending orders 09/17/18 14:42 Culture,Blood [BC] Stat Date of Encounter: 09/19/18 Time of Encounter: 09:25 - Discharge Diagnosis (1) UTI (urinary tract infection) Priority: Primary Status: Acute Qualifiers: Urinary tract infection type: site unspecified Hematuria presence: without hematuria Qualified Code(s): N39.0 - Urinary tract infection, site not specified (2) 12 weeks gestation of Priority: Primary Status: Acute (3) Pyelonephritis Priority: Primary Status: Suspected Hospital course: Ms. Morrison is a 23 year old female no significant medical history presenting emergency room for possible UTI. Patient is 12 weeks , she was here in the emergency room 10 days ago for UTI, was discharged on Macrobid 100 mg twice a day for 7 days. She continues to having burning and frequent urination, and also develop her right flank pain, 6 out of 10 on and off, urination make it worse. Patient was admitted to the hospital due to UTI and possibe pyelonephritis. Patient managed with IV antibiotics. Urine culture: no growth. US/US retroperitoneal comp IMPRESSION: Unremarkable ultrasound of the kidneys and urinary bladder. Patient has been afebrile for >48 hours and is toleration oral diet. clinically stable to be discharged home on oral antibiotics. Recommended to follow up with [facility] as scheduled. - Time Spent with Patient Total time spent providing and/or coordinating discharge services: Time spent: Greater than 30 minutes (35) - Discharge Medications Prescriptions: New cephALEXin [Keflex] 500 mg PO TID 10 Days #30 capsule Continued Acetaminophen [Tylenol] 650 mg PO BID PRN PRN Reason: Pain Home Medications: Acetaminophen [Tylenol] 650 mg PO BID PRN 09/18/18 [History] cephALEXin [Keflex] 500 mg PO TID 10 Days #30 capsule 09/19/18 [Rx] Allergies/Adverse Reactions: Allergy/AdvReac Type Severity Reaction Status Date / Time hydrocodone [From [place]] Allergy Hallucinati Verified 09/18/18 00:27 ng oxycodone [From Percocet] Allergy Hallucinati Verified 09/18/18 00:27 ng Date of admission: 09/17/18 17:17 Primary care physician: Latha Cantor CNP Consults: 09/17/18 19:03 Consult to Nutrition [CONS] Stat Comment: Consulting Provider: NUTRITION Reason for Dietary Consult: MST Score - Constitutional Vitals: Temp Pulse Resp BP Pulse Ox 98.3 F 63 16 101/65 98 09/19/18 07:06 09/19/18 07:06 09/19/18 07:06 09/19/18 07:06 09/19/18 07:06 General appearance: Present: A&O X 3, pleasant Exam: Vitals: Reviewed General: Alert and oriented x4. In no distress Cardiovascular: RRR, normal S1 & S2, no rubs, murmurs or gallops. Lungs: CTA b/l, no wheezes or crackles. Abdomen: Soft, non-tender, no rigidity. Extremities: No deformity, no edema or tenderness, no joint swelling or clubbin g. Neurological: Normal cognition and motor skills. Rest of the physical exam is non contributory - Patient Status Disposition: Home, Self-Care Condition: Good Functional capacity at discharge: independent ambulation Overall status at discharge: patient is back to baseline - Discharge Instructions Follow Up With: Latha Cantor CNP [Primary Care Provider] - Tequila Caro MD [Partnered Physician] - - Diet and Activity Activity: resume usual activities as tolerated Diet: low salt diet
[2018-09-19] MEDS: cefTRIAXone 1,000 MG in 0.9 % Sodium Chloride Mini Bag 100 ML IVPB SCH (09:43)
[2018-09-19] MEDS: Prenatal Vit/FA 1 EACH TABLET PO SCH (09:43)
== END 2018-09-19 11:19 | disposition home or self-care (01) ==
LOC: 3ANU 11:45 → EMEROOARM 11:45 → 3ANU 18:39
PROVIDERS: ADMIT Internal Medicine Nephrology; ATTEND Internal Medicine Nephrology

== ENCOUNTER → 2018-12-06 23:15 | Observation (INO) ==
[2018-12-06 22:07] LABS: Bilirubin,Urine Negative (Negative); Blood,Urine Negative (Negative); Clarity,Urine Clear (Clear); Color,Urine Yellow (Yellow); Glucose,Urine (UA) Normal (Normal); Ketones,Urine Negative (Negative); Leukocyte Esterase,Urine Negative (Negative); Nitrite,Urine Negative (Negative); PH,Urine 6.5 pH Units (5.0-8.0); Protein,Urine Negative (Neg-Trace); Specific Gravity,Urine 1.005 (1.010-1.025); Urobilinogen,Urine Normal (Normal)
[2018-12-06 22:18] LABS: Amphetamine Screen,Urine Negative ng/mL (Cutoff=1000); Barbiturate Screen,Urine Negative ng/mL (Cutoff=200); Benzodiazepines Screen,Urine Negative ng/mL (Cutoff=200); Cannabinoid Screen,Urine Negative ng/mL (Cutoff = 50); Cocaine Screen,Urine Negative ng/mL (Cutoff= 300); Opiate Screen,Urine Negative ng/mL (Cutoff=300); Phencyclidine Screen,Urine Negative ng/mL (Cutoff=25)
--- NOTE | 2018-12-06 23:16 | Discharge Summary ---
Date of Encounter: 12/06/18 Time of Encounter: 23:15 - Discharge Diagnosis (1) 24 weeks gestation of Priority: Primary Status: Acute Comments: Follow up with Dr. Caro as scheduled Discharge home (2) Abdominal cramping Priority: Secondary Status: Acute Comments: UA-negative Pt verbalized symptoms have resolved - Discharge Medications Prescriptions: No Action Acetaminophen [Tylenol] 650 mg PO BID PRN PRN Reason: Pain Ranitidine HCl [Zantac] 1 mg PO BID 19 Tablet 1 mg PO DAILY Home Medications: Acetaminophen [Tylenol] 650 mg PO BID PRN 09/18/18 [History] 19 Tablet 1 mg PO DAILY 12/06/18 [History] Ranitidine HCl [Zantac] 1 mg PO BID 12/06/18 [History] Allergies/Adverse Reactions: Allergy/AdvReac Type Severity Reaction Status Date / Time hydrocodone [From [place]] Allergy Hallucinati Verified 09/18/18 00:27 ng oxycodone [From Percocet] Allergy Hallucinati Verified 09/18/18 00:27 ng Data Procedures and tests throughout hospitalization: Laboratory Tests 12/06/18 12/06/18 21:55 21:55 Urine Color Yellow Urine Clarity Clear Urine pH 6.5 Ur Specific [place] 1.005 L Urine Protein Negative Urine Glucose (UA) Normal Urine Ketones Negative Urine Blood Negative Urine Nitrite Negative Urine Bilirubin Negative Urine Urobilinogen Normal Ur Leukocyte Esterase Negative Ur Culture Indicated? NO Urine Opiates Screen Negative Ur Buprenorphine Scrn Negative Ur Barbiturates Screen Negative Ur Phencyclidine Scrn Negative Ur Amphetamines Screen Negative U Benzodiazepines Scrn Negative Urine Cocaine Screen Negative U Marijuana (THC) Screen Negative Ur Drug Screen Interp See Below Labs on day of discharge: Labs from last 24 hours 12/06/18 12/06/18 21:55 21:55 Urine Color Yellow Urine Clarity Clear Urine pH 6.5 Ur Specific [place] 1.005 L Urine Protein Negative Urine Glucose (UA) Normal Urine Ketones Negative Urine Blood Negative Urine Nitrite Negative Urine Bilirubin Negative Urine Urobilinogen Normal Ur Leukocyte Esterase Negative Ur Culture Indicated? NO Urine Opiates Screen Negative Ur Buprenorphine Scrn Negative Ur Barbiturates Screen Negative Ur Phencyclidine Scrn Negative Ur Amphetamines Screen Negative U Benzodiazepines Scrn Negative Urine Cocaine Screen Negative U Marijuana (THC) Screen Negative Ur Drug Screen Interp See Below Date of admission: 12/06/18 21:40 Discharging clinician: Candace Ledezma Anticipated date of discharge: 12/06/18 - Patient Status Disposition: Home, Self-Care Condition: Good Functional capacity at discharge: independent ambulation Overall status at discharge: patient is progressing back to baseline - Discharge Instructions Follow Up With: Tequila Caro MD [Partnered Physician] - Additional Instructions: LABOR AND DELIVERY DISCHARGE INSTRUCTIONS Signs and Symptoms to be Reported to your Doctor Immediately: * Sudden gush, continuous or intermittent lead of fluid from vagina (note the time of gush and color of fluid) * Onset of bright red vaginal bleeding with or without pain (if you had a vaginal exam during this visit you may notice some dark red spotting. This is normal.) * Lower abdominal cramping or backache that is premenstrual-like feeling. * More than 6 contractions in one hour. * Burning during urination, having to urinate more frequently or pain in your mid-back. * A change in the baby's activity. This could be an increase or decrease in activity. * Severe headache which does not go away with tylenol. * Sudden swelling in the face, hands, arms and/or legs. * Upper abdominal pain - sometimes associated with heartburn or nausea and is not relieved by Maalox, Mylanta or Tums. * Dizziness or blurred vision or visual disturbances (seeing stars/lights). * Kick Counts One hour after a meal, lay down on one side in a quiet place. Count the number of gabo the baby moves during an hour. If less than 6 movements, notify your physician. Diet: *Force fluids - 8-10 tall glasses of fluid per day. May include popsicles and jello. *Limit caffeine - this includes chocolate, coffee, tea, any soft drink containing such as all stephani, Jomar Yellow and Mountain Dew - Diet and Activity Activity: increase activity as tolerated Diet: regular diet Hospital Course [employer] Reason for admission: other Discharge diagnosis: other Hospital course: Ms. Morrison presents with c/o "vaginal contractions" and uterine/abdominal cramping. UA was negative for UTI. Reassuring monitoring x 1 hour. Pt advised to continue to increase hydration and follow up as needed. Discharged in stable condition. Time Attestation: Total time spent providing and/or coordinating discharge services: Time Spent: Less than 30 minutes Exam - Constitutional General appearance IM: A&O X 3, pleasant, obese, answers questions appropriately - Respiratory Respiratory exam: Present: CTAB - Cardiovascular Cardiovascular exam IM: Present: RRR, +S1, +S2 - GI/Abdominal GI/Abdominal exam IM: normal bowel sounds, no peritoneal signs - Rectal Rectal exam: deferred - Uterine Tone: Firm - Extremities Exam Extremities exam IM: Present: full ROM, normal capillary refill, normal insp ection, radial pulses palpable and symmetrical - Neurological Exam Neurological exam: alert, CN II-XII intact, normal gait, oriented X3, reflexes normal, no focal deficits, strengths equal and symetr throughout - VTE Reasons for not Prescribing Prophylaxis: Treatment not Indicated - Low risk for VTE
== END | disposition home or self-care (01) ==
LOC: 1NENULAB
PROVIDERS: ADMIT Advanced Practice Midwife; ATTEND Advanced Practice Midwife

== ENCOUNTER 2019-01-07 14:38 | Observation (INO) ==
[2019-01-07 15:02] LABS: Bilirubin,Urine Negative (Negative); Blood,Urine Negative (Negative); Color,Urine Yellow (Yellow); Glucose,Urine (UA) Normal (Normal); Ketones,Urine Negative (Negative); Leukocyte Esterase,Urine Negative (Negative); Nitrite,Urine Negative (Negative); Protein,Urine Negative (Neg-Trace); Specific Gravity,Urine 1.013 (1.010-1.025); Urobilinogen,Urine Normal (Normal)
[2019-01-07 15:03] LABS: Clarity,Urine Clear (Clear)
[2019-01-07 15:11] LABS: Amphetamine Screen,Urine Negative ng/mL (Cutoff=1000); Barbiturate Screen,Urine Negative ng/mL (Cutoff=200); Benzodiazepines Screen,Urine Negative ng/mL (Cutoff=200); Cannabinoid Screen,Urine Negative ng/mL (Cutoff = 50); Cocaine Screen,Urine Negative ng/mL (Cutoff= 300); Opiate Screen,Urine Negative ng/mL (Cutoff=300); Phencyclidine Screen,Urine Negative ng/mL (Cutoff=25)
== END 2019-01-07 15:35 | disposition home or self-care (01) ==
LOC: 1NENULAB
PROVIDERS: ADMIT Advanced Practice Midwife; ATTEND Advanced Practice Midwife

== ENCOUNTER 2019-01-18 12:55 | Observation (INO) ==
[2019-01-18 14:24] LABS: Bilirubin,Urine Negative (Negative); Blood,Urine Negative (Negative); Clarity,Urine Clear (Clear); Color,Urine Yellow (Yellow); Glucose,Urine (UA) Normal (Normal); Ketones,Urine Negative (Negative); Leukocyte Esterase,Urine Negative (Negative); Nitrite,Urine Negative (Negative); Protein,Urine Negative (Neg-Trace); Specific Gravity,Urine < 1.005 (1.010-1.025); Urobilinogen,Urine Normal (Normal)
[2019-01-18 14:32] LABS: Amphetamine Screen,Urine Negative ng/mL (Cutoff=1000); Barbiturate Screen,Urine Negative ng/mL (Cutoff=200); Benzodiazepines Screen,Urine Negative ng/mL (Cutoff=200); Cannabinoid Screen,Urine Negative ng/mL (Cutoff = 50); Cocaine Screen,Urine Negative ng/mL (Cutoff= 300); Opiate Screen,Urine Negative ng/mL (Cutoff=300); Phencyclidine Screen,Urine Negative ng/mL (Cutoff=25)
== END 2019-01-18 15:34 | disposition home or self-care (01) ==
LOC: 1NENULAB
PROVIDERS: ADMIT Advanced Practice Midwife; ATTEND Advanced Practice Midwife

== ENCOUNTER → 2019-02-05 18:01 | Observation (INO) ==
[2019-02-05 13:43] VITALS: BP 119/66
[2019-02-05 13:56] LABS: Bilirubin,Urine Negative (Negative); Blood,Urine Negative (Negative); Clarity,Urine Cloudy (Clear); Color,Urine Yellow (Yellow); Glucose,Urine (UA) Normal (Normal); Ketones,Urine Negative (Negative); Leukocyte Esterase,Urine Negative (Negative); Nitrite,Urine Negative (Negative); PH,Urine 7.5 pH Units (5.0-8.0); Protein,Urine Negative (Neg-Trace); Specific Gravity,Urine 1.008 (1.010-1.025); Urobilinogen,Urine Normal (Normal)
[2019-02-05 14:01] LABS: Bacteria,Urine None Seen per hpf (None-Few); Hyaline Casts,Urine None Seen per lpf (None-Few); RBC,Urine 0-3 per hpf (0-3); Squamous Epithelial Cell,Urine Many per lpf (None-Few); WBC,Urine 0-3 per hpf (0-3)
[2019-02-05 14:12] LABS: Amphetamine Screen,Urine Negative ng/mL (Cutoff=1000); Barbiturate Screen,Urine Negative ng/mL (Cutoff=200); Benzodiazepines Screen,Urine Negative ng/mL (Cutoff=200); Cannabinoid Screen,Urine Negative ng/mL (Cutoff = 50); Cocaine Screen,Urine Negative ng/mL (Cutoff= 300); Opiate Screen,Urine Negative ng/mL (Cutoff=300); Phencyclidine Screen,Urine Negative ng/mL (Cutoff=25)
[2019-02-05 16:22] LABS: Candida DNA Not Detected (Not Detect); Gardnerella DNA Not Detected (Not Detect); Trichomonas DNA Not Detected (Not Detect)
[~2019-02-05 18:01] MED LIST: Betamethasone Acet/SodPhos 30 MG/5 ML VIAL IM SCH; Terbutaline 1 MG/ML VIAL SQ ONE
== END | disposition home or self-care (01) ==
LOC: 1NENULAB
PROVIDERS: ADMIT Registered Nurse; ATTEND Registered Nurse

== ENCOUNTER → 2019-02-06 14:50 | Observation (INO) ==
[~2019-02-06 14:50] MED LIST changes: -Terbutaline 1 MG/ML VIAL SQ ONE
== END | disposition home or self-care (01) ==
LOC: 1NENULAB
PROVIDERS: ADMIT Registered Nurse; ATTEND Registered Nurse

== ENCOUNTER → 2019-02-09 04:43 | Observation (INO) ==
[2019-02-09 02:02] LABS: Bilirubin,Urine Negative (Negative); Blood,Urine Large (Negative); Clarity,Urine Turbid (Clear); Color,Urine Red (Yellow); Glucose,Urine (UA) Normal (Normal); Ketones,Urine Negative (Negative); Leukocyte Esterase,Urine Small (Negative); Nitrite,Urine Negative (Negative); PH,Urine 7.5 pH Units (5.0-8.0); Protein,Urine 30 mg/dL (Neg-Trace); Specific Gravity,Urine 1.011 (1.010-1.025); Urobilinogen,Urine Normal (Normal)
[2019-02-09 02:04] LABS: Bacteria,Urine Moderate per hpf (None-Few); RBC,Urine TNTC per hpf (0-3); Squamous Epithelial Cell,Urine Many per lpf (None-Few); WBC,Urine 15-30 per hpf (0-3)
[2019-02-09 02:18] LABS: Amphetamine Screen,Urine Negative ng/mL (Cutoff=1000); Barbiturate Screen,Urine Negative ng/mL (Cutoff=200); Benzodiazepines Screen,Urine Negative ng/mL (Cutoff=200); Cannabinoid Screen,Urine Negative ng/mL (Cutoff = 50); Cocaine Screen,Urine Negative ng/mL (Cutoff= 300); Opiate Screen,Urine Negative ng/mL (Cutoff=300); Phencyclidine Screen,Urine Negative ng/mL (Cutoff=25)
[2019-02-09 02:27] LABS: Amorphous Sediment,Urine Few (Few)
== END | disposition home or self-care (01) ==
LOC: 1NENULAB
PROVIDERS: ADMIT Registered Nurse; ATTEND Registered Nurse

== ENCOUNTER → 2019-02-11 16:00 | Observation (INO) ==
[2019-02-11 12:18] LABS: Basophils % 0.2 %; Eosinophils # 0.1 K/mcL (0.0-0.6); Eosinophils % 0.3 %; Hematocrit 31.3 % (35.3-44.9); Immature Granulocytes % 1.3 % (0-4); Lymphocytes # 1.9 K/mcL (0.6-4.6); Lymphocytes % 12.4 %; Mean Corpuscular HGB Conc 35.1 g/dL (31.6-35.5); Mean Corpuscular Hemoglobin 32.2 pg (28.0-33.3); Mean Corpuscular Volume 91.5 fL (83.0-100.0); Mean Platelet Volume 12.4 fL (9.4-12.4); Monocytes # 0.8 K/mcL (0.0-1.3); Monocytes % 5.4 %; Neutrophils # 12.4 K/mcL (1.6-8.9); Platelet Count 207 K/mcL (140-400); Red Blood Count 3.42 M/mcL (3.82-4.97); Red Cell Distribution Width 13.2 % (11.5-14.5); Segmented Neutrophils % 80.4 %; White Blood Count 15.4 K/mcL (4.3-11.1)
[2019-02-11 12:31] LABS: Amphetamine Screen,Urine Negative ng/mL (Cutoff=1000); Barbiturate Screen,Urine Negative ng/mL (Cutoff=200); Benzodiazepines Screen,Urine Negative ng/mL (Cutoff=200); Cannabinoid Screen,Urine Negative ng/mL (Cutoff = 50); Cocaine Screen,Urine Negative ng/mL (Cutoff= 300); Opiate Screen,Urine Negative ng/mL (Cutoff=300); Phencyclidine Screen,Urine Negative ng/mL (Cutoff=25); Protein/Creatinine Ratio,Urine 0.52 mg/mg (0.00-0.20)
[2019-02-11 12:38] LABS: Alanine Aminotransferase 10 Units/L (7-52); Aspartate Amino Transferase 15 Units/L (13-39); BUN/Creatinine Ratio 11 (6-26); Blood Urea Nitrogen 6 mg/dL (6-20); Lactate Dehydrogenase 120 Units/L (140-271); Uric Acid 5.4 mg/dL (2.3-7.6); eGFR For African Americans > 60 (> 60); eGFR For Non-African Americans > 60 (> 60)
[~2019-02-11 16:00] MED LIST changes: +Acetaminophen 325 MG TABLET PO ONE; -Betamethasone Acet/SodPhos 30 MG/5 ML VIAL IM SCH
[2019-02-11 16:38] LABS: Bacteria,Urine Few per hpf (None-Few); Bilirubin,Urine Negative (Negative); Blood,Urine Small (Negative); Clarity,Urine Cloudy (Clear); Color,Urine Yellow (Yellow); Glucose,Urine (UA) Normal (Normal); Hyaline Casts,Urine None Seen per lpf (None-Few); Ketones,Urine Negative (Negative); Leukocyte Esterase,Urine Negative (Negative); Nitrite,Urine Negative (Negative); PH,Urine 7.5 pH Units (5.0-8.0); Protein,Urine Negative (Neg-Trace); RBC,Urine 0-3 per hpf (0-3); Specific Gravity,Urine 1.008 (1.010-1.025); Squamous Epithelial Cell,Urine Many per lpf (None-Few); Urobilinogen,Urine Normal (Normal); WBC,Urine 0-3 per hpf (0-3)
== END | disposition home or self-care (01) ==
LOC: 1NENULAB
PROVIDERS: ADMIT Registered Nurse; ATTEND Registered Nurse

== ENCOUNTER 2019-02-14 17:58 | Observation (INO) ==
[2019-02-14 16:59] LABS: Bilirubin,Urine Moderate (Negative); Blood,Urine Large (Negative); Clarity,Urine Turbid (Clear); Color,Urine Red (Yellow); Glucose,Urine (UA) Normal (Normal); Ketones,Urine 80 mg/dL (Negative); Leukocyte Esterase,Urine Small (Negative); Nitrite,Urine Negative (Negative); Protein,Urine 30 mg/dL (Neg-Trace); Specific Gravity,Urine 1.014 (1.010-1.025); Urobilinogen,Urine Normal (Normal)
[2019-02-14 17:08] LABS: Amphetamine Screen,Urine Negative ng/mL (Cutoff=1000); Barbiturate Screen,Urine Negative ng/mL (Cutoff=200); Benzodiazepines Screen,Urine Negative ng/mL (Cutoff=200); Cannabinoid Screen,Urine Negative ng/mL (Cutoff = 50); Cocaine Screen,Urine Negative ng/mL (Cutoff= 300); Opiate Screen,Urine Negative ng/mL (Cutoff=300); Phencyclidine Screen,Urine Negative ng/mL (Cutoff=25)
[2019-02-14 17:16] LABS: RBC,Urine TNTC per hpf (0-3)
[2019-02-14 17:17] LABS: Basophils % 0.1 %; Eosinophils % 0.3 %; Hematocrit 30.8 % (35.3-44.9); Hemoglobin 10.8 g/dL (11.5-15.4); Immature Granulocytes % 0.9 % (0-4); Lymphocytes % 12.5 %; Mean Corpuscular HGB Conc 35.1 g/dL (31.6-35.5); Mean Corpuscular Hemoglobin 31.5 pg (28.0-33.3); Mean Corpuscular Volume 89.8 fL (83.0-100.0); Mean Platelet Volume 12.3 fL (9.4-12.4); Monocytes # 0.7 K/mcL (0.0-1.3); Monocytes % 4.7 %; Neutrophils # 12.7 K/mcL (1.6-8.9); Platelet Count 191 K/mcL (140-400); Red Blood Count 3.43 M/mcL (3.82-4.97); Red Cell Distribution Width 12.9 % (11.5-14.5); Segmented Neutrophils % 81.5 %; White Blood Count 15.6 K/mcL (4.3-11.1)
[2019-02-14 17:17] LABS: Squamous Epithelial Cell,Urine Few per lpf (None-Few); WBC,Urine 0-3 per hpf (0-3)
[2019-02-14 17:43] LABS: Alanine Aminotransferase 8 Units/L (7-52); Albumin 3.5 g/dL (3.5-5.7); Albumin/Globulin Ratio 1.1 (1.1-2.2); Alkaline Phosphatase 109 Units/L (34-104); Aspartate Amino Transferase 14 Units/L (13-39); BUN/Creatinine Ratio 10 (6-26); Bilirubin,Total 0.4 mg/dL (0.3-1.0); Blood Urea Nitrogen 5 mg/dL (6-20); Calcium 9.7 mg/dL (8.6-10.3); Carbon Dioxide 22 mEq/L (23-29); Chloride 102 mEq/L (98-107); Globulin 3.1 g/dL (2.4-3.5); Glucose 89 mg/dL (70-105); Osmolality,Calculated 279 (280-300); Potassium 3.2 mEq/L (3.5-5.1); Sodium 136 mEq/L (136-145); Total Protein 6.6 g/dL (6.4-8.9); eGFR For African Americans > 60 (> 60); eGFR For Non-African Americans > 60 (> 60)
[~2019-02-14 17:58] MED LIST changes: -Acetaminophen 325 MG TABLET PO ONE; +Ringers Solution, Lactated 1,000 ML IVC ONE; +Ringers Solution, Lactated 1,000 ML ONE
[2019-02-14 18:14] LABS: Candida DNA Not Detected (Not Detect); Gardnerella DNA Not Detected (Not Detect); Trichomonas DNA Not Detected (Not Detect)
[2019-02-14] MEDS ORDERED: Ringers Solution, Lactated 1,000 ML IVC ONE (19:27)
[2019-02-14] MEDS ORDERED: Terbutaline 1 MG/ML VIAL SQ ONE ×2 (19:27→19:28)
[2019-02-14] MEDS ORDERED: NIFEdipine 10 MG CAPSULE PO ONE (20:13)
== END 2019-02-14 21:47 | disposition home or self-care (01) ==
LOC: 1NENULAB
PROVIDERS: ADMIT Registered Nurse; ATTEND Registered Nurse

== ENCOUNTER → 2019-02-15 22:55 | Observation (INO) ==
[2019-02-15 21:37] LABS: Amphetamine Screen,Urine Negative ng/mL (Cutoff=1000); Barbiturate Screen,Urine Negative ng/mL (Cutoff=200); Benzodiazepines Screen,Urine Negative ng/mL (Cutoff=200); Cannabinoid Screen,Urine Negative ng/mL (Cutoff = 50); Cocaine Screen,Urine Negative ng/mL (Cutoff= 300); Opiate Screen,Urine Negative ng/mL (Cutoff=300); Phencyclidine Screen,Urine Negative ng/mL (Cutoff=25)
== END | disposition home or self-care (01) ==
LOC: 1NENULAB
PROVIDERS: ADMIT Advanced Practice Midwife; ATTEND Advanced Practice Midwife

== ENCOUNTER → 2019-02-21 20:00 | Observation (INO) ==
[2019-02-21 18:20] LABS: Bilirubin,Urine Negative (Negative); Blood,Urine Large (Negative); Clarity,Urine Cloudy (Clear); Color,Urine Yellow (Yellow); Glucose,Urine (UA) Normal (Normal); Ketones,Urine Negative (Negative); Leukocyte Esterase,Urine Trace (Negative); Nitrite,Urine Negative (Negative); PH,Urine 7.5 pH Units (5.0-8.0); Protein,Urine Negative (Neg-Trace); Specific Gravity,Urine 1.009 (1.010-1.025); Urobilinogen,Urine Normal (Normal)
[2019-02-21 18:22] LABS: Bacteria,Urine None Seen per hpf (None-Few); Hyaline Casts,Urine None Seen per lpf (None-Few); Squamous Epithelial Cell,Urine Many per lpf (None-Few)
[2019-02-21 18:31] LABS: Amphetamine Screen,Urine Negative ng/mL (Cutoff=1000); Barbiturate Screen,Urine Negative ng/mL (Cutoff=200); Benzodiazepines Screen,Urine Negative ng/mL (Cutoff=200); Cannabinoid Screen,Urine Negative ng/mL (Cutoff = 50); Cocaine Screen,Urine Negative ng/mL (Cutoff= 300); Opiate Screen,Urine Negative ng/mL (Cutoff=300); Phencyclidine Screen,Urine Negative ng/mL (Cutoff=25)
== END | disposition home or self-care (01) ==
LOC: 1NENULAB
PROVIDERS: ADMIT Advanced Practice Midwife; ATTEND Advanced Practice Midwife

== ENCOUNTER 2019-02-28 21:38 | Observation (INO) ==
[2019-02-28 22:15] LABS: Basophils % 0.2 %; Bilirubin,Urine Negative (Negative); Blood,Urine Negative (Negative); Clarity,Urine Clear (Clear); Color,Urine Yellow (Yellow); Eosinophils # 0.1 K/mcL (0.0-0.6); Eosinophils % 0.5 %; Glucose,Urine (UA) Normal (Normal); Hematocrit 30.7 % (35.3-44.9); Hemoglobin 10.6 g/dL (11.5-15.4); Immature Granulocytes % 0.8 % (0-4); Ketones,Urine Negative (Negative); Leukocyte Esterase,Urine Trace (Negative); Lymphocytes # 2.1 K/mcL (0.6-4.6); Lymphocytes % 17.1 %; Mean Corpuscular HGB Conc 34.5 g/dL (31.6-35.5); Mean Corpuscular Hemoglobin 31.3 pg (28.0-33.3); Mean Corpuscular Volume 90.6 fL (83.0-100.0); Mean Platelet Volume 12.8 fL (9.4-12.4); Monocytes # 0.8 K/mcL (0.0-1.3); Monocytes % 6.8 %; Nitrite,Urine Negative (Negative); Platelet Count 171 K/mcL (140-400); Protein,Urine Negative (Neg-Trace); Red Blood Count 3.39 M/mcL (3.82-4.97); Red Cell Distribution Width 12.9 % (11.5-14.5); Segmented Neutrophils % 74.6 %; Specific Gravity,Urine 1.015 (1.010-1.025); Urobilinogen,Urine Normal (Normal)
[2019-02-28 22:17] LABS: Bacteria,Urine Few per hpf (None-Few); Hyaline Casts,Urine None Seen per lpf (None-Few); RBC,Urine 0-3 per hpf (0-3); Squamous Epithelial Cell,Urine Many per lpf (None-Few)
[2019-02-28 22:24] LABS: Protein/Creatinine Ratio,Urine 0.17 mg/mg (0.00-0.20)
[2019-02-28 22:35] LABS: Alanine Aminotransferase 9 Units/L (7-52); Aspartate Amino Transferase 20 Units/L (13-39); BUN/Creatinine Ratio 6 (6-26); Blood Urea Nitrogen 3 mg/dL (6-20); Lactate Dehydrogenase 120 Units/L (140-271); Uric Acid 5.1 mg/dL (2.3-7.6); eGFR For African Americans > 60 (> 60); eGFR For Non-African Americans > 60 (> 60)
== END 2019-02-28 23:15 | disposition home or self-care (01) ==
LOC: 1NENULAB
PROVIDERS: ADMIT Advanced Practice Midwife; ATTEND Advanced Practice Midwife

== ENCOUNTER 2019-03-13 21:40 | Observation (INO) ==
[2019-03-13 22:13] LABS: Bilirubin,Urine Negative (Negative); Blood,Urine Negative (Negative); Clarity,Urine Cloudy (Clear); Color,Urine Yellow (Yellow); Glucose,Urine (UA) Normal (Normal); Ketones,Urine Negative (Negative); Leukocyte Esterase,Urine Small (Negative); Nitrite,Urine Negative (Negative); PH,Urine 7.5 pH Units (5.0-8.0); Protein,Urine Negative (Neg-Trace); Urobilinogen,Urine Normal (Normal)
[2019-03-13 22:14] LABS: Bacteria,Urine Many per hpf (None-Few); Hyaline Casts,Urine None Seen per lpf (None-Few); RBC,Urine 0-3 per hpf (0-3); Squamous Epithelial Cell,Urine Many per lpf (None-Few)
[2019-03-13 22:18] LABS: Amphetamine Screen,Urine Negative ng/mL (Cutoff=1000); Barbiturate Screen,Urine Negative ng/mL (Cutoff=200); Benzodiazepines Screen,Urine Negative ng/mL (Cutoff=200); Cannabinoid Screen,Urine Negative ng/mL (Cutoff = 50); Cocaine Screen,Urine Negative ng/mL (Cutoff= 300); Opiate Screen,Urine Negative ng/mL (Cutoff=300); Phencyclidine Screen,Urine Negative ng/mL (Cutoff=25)
[2019-03-13 22:35] LABS: Mucus,Urine Few per lpf (Few); Oval Fat Bodies,Urine Present (None Seen); Yeast,Urine Few per hpf (None Seen)
== END 2019-03-13 23:43 | disposition home or self-care (01) ==
LOC: 1NENULAB
PROVIDERS: ADMIT Registered Nurse; ATTEND Registered Nurse

== ENCOUNTER → 2019-03-18 20:13 | Observation (INO) ==
[2019-03-18 18:42] LABS: Amphetamine Screen,Urine Negative ng/mL (Cutoff=1000); Barbiturate Screen,Urine Negative ng/mL (Cutoff=200); Benzodiazepines Screen,Urine Negative ng/mL (Cutoff=200); Cannabinoid Screen,Urine Negative ng/mL (Cutoff = 50); Cocaine Screen,Urine Negative ng/mL (Cutoff= 300); Opiate Screen,Urine Negative ng/mL (Cutoff=300); Phencyclidine Screen,Urine Negative ng/mL (Cutoff=25)
== END | disposition home or self-care (01) ==
LOC: 1NENULAB
PROVIDERS: ADMIT Advanced Practice Midwife; ATTEND Advanced Practice Midwife

== ENCOUNTER 2019-03-22 11:00 | Inpatient (IN) ==
[2019-03-22] MEDS ORDERED: Metoclopramide 10 MG/2 ML VIAL IVP PRN (11:29)
[2019-03-22] MEDS ORDERED: Ondansetron 4 MG/2 ML VIAL IVP PRN ×2 (11:29→17:14)
[2019-03-22] MEDS ORDERED: Azithromycin 500 MG in 0.9 % Sodium Chloride 250 ML IVPB ONE (11:29)
[2019-03-22] MEDS ORDERED: Lidocaine 1% 20 ML MDV INFILT PRN (11:29)
[2019-03-22] MEDS ORDERED: Naloxone 0.4 MG/ML INJ IVP PRN ×2 (11:29→17:14)
[2019-03-22] MEDS ORDERED: *HR* Nalbuphine 10 MG/ML AMPUL IVP PRN (11:29)
[2019-03-22] MEDS ORDERED: Famotidine 20 MG/2 ML VIAL IVP PRN (11:29)
[2019-03-22] MEDS ORDERED: Oxytocin 20 units/ LR 1000 mL 20 UNIT/1,000 ML BAG IVC SCH ×2 (11:30→21:04)
[2019-03-22] MEDS ORDERED: Ringers Solution, Lactated 1,000 ML IVC SCH (11:30)
[2019-03-22 12:59] LABS: Basophils % 0.1 %; Eosinophils % 0.3 %; Hematocrit 31.2 % (35.3-44.9); Hemoglobin 10.7 g/dL (11.5-15.4); Immature Granulocytes % 0.7 % (0-4); Lymphocytes # 1.8 K/mcL (0.6-4.6); Lymphocytes % 12.6 %; Mean Corpuscular HGB Conc 34.3 g/dL (31.6-35.5); Mean Corpuscular Hemoglobin 30.9 pg (28.0-33.3); Mean Corpuscular Volume 90.2 fL (83.0-100.0); Mean Platelet Volume 12.9 fL (9.4-12.4); Monocytes # 0.7 K/mcL (0.0-1.3); Monocytes % 4.7 %; Neutrophils # 11.9 K/mcL (1.6-8.9); Platelet Count 172 K/mcL (140-400); Red Blood Count 3.46 M/mcL (3.82-4.97); Red Cell Distribution Width 12.8 % (11.5-14.5); Segmented Neutrophils % 81.6 %; White Blood Count 14.6 K/mcL (4.3-11.1)
[2019-03-22 13:21] LABS: Amphetamine Screen,Urine Negative ng/mL (Cutoff=1000); Barbiturate Screen,Urine Negative ng/mL (Cutoff=200); Benzodiazepines Screen,Urine Negative ng/mL (Cutoff=200); Cannabinoid Screen,Urine Negative ng/mL (Cutoff = 50); Cocaine Screen,Urine Negative ng/mL (Cutoff= 300); Opiate Screen,Urine Negative ng/mL (Cutoff=300); Phencyclidine Screen,Urine Negative ng/mL (Cutoff=25)
[2019-03-22] MEDS ORDERED: Ropivacaine/PF 0.2% 20 ML VIAL ONE (16:39)
[2019-03-22] MEDS ORDERED: *HR* FentaNYL (PF) 100 MCG/2 ML VIAL ONE (16:39)
[2019-03-22] MEDS ORDERED: Epidural Premix (fent/bupiv) 110 ML EP ONE (16:45)
[2019-03-22] MEDS ORDERED: EPHEDrine 50 MG/ML VIAL IVP PRN (17:14)
[2019-03-22] MEDS ORDERED: *HR* FentaNYL (PF) 100 MCG/2 ML VIAL EP ONE (17:14)
[2019-03-22] MEDS ORDERED: Ropivacaine/PF 0.2% 20 ML VIAL EP ONE (17:14)
[2019-03-22] MEDS ORDERED: Epidural Premix (fent/bupiv) 110 ML EP SCH (17:15)
[2019-03-22] MEDS ORDERED: Lanolin 7 G OINT...G. TP PRN (21:04)
[2019-03-22] MEDS ORDERED: Acetaminophen 325 MG TABLET PO PRN (21:04)
[2019-03-22] MEDS ORDERED: Benzocaine/Menthol 56 GM AEROSOL SPRAY TP PRN (21:04)
[2019-03-23] MEDS: Ibuprofen 600 MG TABLET PO PRN ×2 (05:58→08:41)
[2019-03-23 08:17] LABS: Basophils % 0.1 %; Eosinophils # 0.1 K/mcL (0.0-0.6); Eosinophils % 0.7 %; Hematocrit 28.6 % (35.3-44.9); Hemoglobin 9.6 g/dL (11.5-15.4); Immature Granulocytes % 0.7 % (0-4); Lymphocytes # 2.1 K/mcL (0.6-4.6); Lymphocytes % 16.9 %; Mean Corpuscular HGB Conc 33.6 g/dL (31.6-35.5); Mean Corpuscular Hemoglobin 30.1 pg (28.0-33.3); Mean Corpuscular Volume 89.7 fL (83.0-100.0); Mean Platelet Volume 12.6 fL (9.4-12.4); Monocytes # 0.8 K/mcL (0.0-1.3); Monocytes % 6.7 %; Neutrophils # 9.4 K/mcL (1.6-8.9); Platelet Count 154 K/mcL (140-400); Red Blood Count 3.19 M/mcL (3.82-4.97); Red Cell Distribution Width 12.8 % (11.5-14.5); Segmented Neutrophils % 74.9 %; White Blood Count 12.6 K/mcL (4.3-11.1)
[2019-03-23] MEDS ORDERED: Prenatal Vit/FA 1 EACH TABLET PO SCH (09:00)
[2019-03-23 16:20] VITALS: BP 122/79
== END 2019-03-23 20:13 | disposition home or self-care (01) | DRG 560 ==
LOC: 1NENULAB → OBSVTOIN 11:00 → 1NENUOBS 22:19
PROVIDERS: ADMIT Registered Nurse; ATTEND Registered Nurse